=== PATIENT | female | born 1980 | race Caucasian/White ===

== ENCOUNTER 2017-11-02 13:46 | Inpatient (IN) | payer OTHER ==
[2017-11-02] VITALS (10 sets, daily range): BP systolic 96–136; BP diastolic 52–71; PULSE 53–76; RESP 16–20; TEMP 97.4–99.3; O2SAT 100
[~2017-11-02] VITALS: Ht 160 cm; Wt 62.0 kg
[2017-11-02 15:36] LABS: AUTOMATED NEUTROPHIL # 2.7 TH/MM3 (1.8-7.7); BASOPHIL % 0.6 % (0.0-2.0); EOSINOPHIL # 0.1 TH/MM3 (0-0.4); EOSINOPHIL % 1.1 % (0.0-4.0); HEMATOCRIT 23.4 % (35.0-46.0); LYMPH % 33.8 % (9.0-44.0); LYMPHOCYTE # 1.6 TH/MM3 (1.0-4.8); MEAN CELL VOLUME 61.6 FL (80.0-100.0); MEAN CORPUSCULAR HEMOGLOBIN 17.8 PG (27.0-34.0); MEAN PLATELET VOLUME 8.6 FL (7.0-11.0); MONO % 8.4 % (0.0-8.0); MONOCYTE # 0.4 TH/MM3 (0-0.9); NEUT % 56.1 % (16.0-70.0); PLATELET COUNT 361 TH/MM3 (150-450); RED BLOOD COUNT 3.79 MIL/MM3 (4.00-5.30); RED CELL DISTRIBUTION WIDTH 19.6 % (11.6-17.2); WHITE BLOOD COUNT 4.8 TH/MM3 (4.0-11.0)
[2017-11-02 15:40] LABS: BACTERIA, URINE MANY /hpf; BILIRUBIN, URINE NEG (NEG); BLOOD, URINE NEG (NEG); GLUCOSE,URINE NEG (NEG); KETONE, URINE TRACE mg/dL (NEG); MUCUS URINE MANY /lpf (OCC); NITRITE,URINE POS (NEG); SQUAMOUS EPITHELIAL CELL URINE 9 /hpf (0-5); URINE COLOR YELLOW (YELLW/STRAW); URINE LEUKOCYTE ESTERASE SMALL (NEG)
[2017-11-02 15:42] LABS: MEAN CORPUSCULAR HGB CONC 28.9 % (32.0-36.0)
[2017-11-02 15:44] LABS: HEMOGLOBIN 6.8 GM/DL (11.6-15.3)
[2017-11-02 15:45] LABS: PROTHROMBIN TIME - PATIENT 10.3 SEC (9.8-11.6)
[2017-11-02 16:14] LABS: ALBUMIN 3.8 GM/DL (3.4-5.0); ALT (GPT) 12 U/L (10-53); AST (GOT) 12 U/L (15-37); BICARBONATE 24.3 MEQ/L (21.0-32.0); BLOOD UREA NITROGEN 8 MG/DL (7-18); CALCIUM 8.5 MG/DL (8.5-10.1); CHLORIDE 108 MEQ/L (98-107); CREATININE 0.71 MG/DL (0.50-1.00); GLOMERULAR FILTRATION RATE 92 ML/MIN (>89); GLUCOSE,RANDOM 76 MG/DL (74-106); SODIUM (NA) 140 MEQ/L (136-145)
[2017-11-02 16:15] LABS: ALKALINE PHOSPHATASE 52 U/L (45-117); TOTAL BILIRUBIN ADULT 0.3 MG/DL (0.2-1.0); TOTAL PROTEIN 7.5 GM/DL (6.4-8.2)
--- NOTE | 2017-11-02 16:26 | PD ---
HPI Chief Complaint: Abnormal Results Time Seen by Provider: 16:13 Travel History International Travel<30 days: No Contact w/Intl Traveler<30days: No Traveled to known affect area: No History of Present Illness HPI 37-year-old female patient presents to the ER today sent in by her primary care physician because she has been feeling generally fatigued, having some dyspnea on exertion, for several weeks, and had blood work drawn today by primary care doctor which shows significant anemia. She denies any bleeding anywhere, denies heavy menses, and does not know why she is anemic. Modifying Factors: None Associated Signs & Symptoms: Low blood counts, dyspnea on exertion, fatigue Risk Factors: None PFSH Past Medical History ?: Not LMP: 09/2017 Social History Tobacco Use: No Allergies-Medications (Allergen,Severity, Reaction): Coded Allergies: No Known Allergies (Unverified , 11/02/17) Reported Meds & Prescriptions Reported Meds & Active Scripts Active No Active Prescriptions or Reported Medications Review of Systems Except as stated in HPI: all other systems reviewed are Neg Physical Exam Narrative GENERAL: Well-developed middle-age -[place] female patient currently in mild distress. Awake and oriented 3. SKIN: Focused skin assessment warm/dry. HEAD: Atraumatic. Normocephalic. EYES: Pupils equal and round. No scleral icterus. No injection or drainage. ENT: No nasal bleeding or discharge. Mucous membranes pink and moist. NECK: Trachea midline. No JVD. CARDIOVASCULAR: Regular rate and rhythm. No murmur appreciated. RESPIRATORY: No accessory muscle use. Clear to auscultation. Breath sounds equal bilaterally. GASTROINTESTINAL: Abdomen soft, non-tender, nondistended. Hepatic and splenic margins not palpable. MUSCULOSKELETAL: No obvious deformities. No clubbing. No cyanosis. No edema. NEUROLOGICAL: Awake and alert. No obvious cranial nerve deficits. Motor grossly within normal limits. Normal speech. PSYCHIATRIC: Appropriate mood and affect; insight and judgment normal. Data Data Last Documented VS Vital Signs Date Time Temp Pulse Resp B/P (MAP) Pulse Ox O2 Delivery O2 Flow Rate FiO2 11/02/17 16:42 61 20 136/60 (85) 100 11/02/17 16:33 Room Air 11/02/17 14:17 98.0 Orders Orders Urinalysis - C+S If Indicated (11/02/17 14:28) Ed Urine Pregnancytest Poc (11/02/17 14:28) Type And Screen (11/02/17 14:28) Comprehensive Metabolic Panel (11/02/17 14:28) Complete Blood Count With Diff (11/02/17 14:28) Prothrombin Time / Inr (Pt) (11/02/17 14:31) Urine Culture (11/02/17 15:30) Red Blood Cells (Rbc) (11/02/17 16:17) Blood Product Administration (11/02/17 16:17) Sodium Chlor 0.9% 250 Ml Inj (Ns 250 Ml (11/02/17 16:30) Admit Order (Ed Use Only) (11/02/17 16:43) Hgb & Hct (11/02/17 18:01) Hgb & Hct (11/03/17 02:01) Hgb & Hct (11/03/17 10:01) Vital Signs (Adult) Q4H (11/02/17 16:42) Activity Oob Ad Radha (11/02/17 16:42) Diet Heart Healthy (11/02/17 Dinner) Acetaminophen (Tylenol) (11/02/17 16:45) Ondansetron Inj (Zofran Inj) (11/02/17 16:45) Basic Metabolic Panel (Bmp) (11/03/17 06:00) Complete Blood Count With Diff (11/03/17 06:00) Case Management Consult (11/02/17 16:42) Scd Bilateral/Knee High ERIKA.BID (11/02/17 16:42) Place In Observation (11/02/17 16:42) Ferritin (11/02/17 16:42) Transferrin (11/02/17 16:42) Iron/Tibc Profile (11/02/17 16:42) Labs Laboratory Tests Test 11/02/17 14:55 11/02/17 15:30 White Blood Count 4.8 TH/MM3 Red Blood Count 3.79 MIL/MM3 Hemoglobin 6.8 GM/DL Hematocrit 23.4 % Mean Corpuscular Volume 61.6 FL Mean Corpuscular Hemoglobin 17.8 PG Mean Corpuscular Hemoglobin Concent 28.9 % Red Cell Distribution Width 19.6 % Platelet Count 361 TH/MM3 Mean Platelet Volume 8.6 FL Neutrophils (%) (Auto) 56.1 % Lymphocytes (%) (Auto) 33.8 % Monocytes (%) (Auto) 8.4 % Eosinophils (%) (Auto) 1.1 % Basophils (%) (Auto) 0.6 % Neutrophils # (Auto) 2.7 TH/MM3 Lymphocytes # (Auto) 1.6 TH/MM3 Monocytes # (Auto) 0.4 TH/MM3 Eosinophils # (Auto) 0.1 TH/MM3 Basophils # (Auto) 0.0 TH/MM3 CBC Comment DIFF FINAL Differential Comment Prothrombin Time 10.3 SEC Prothromb Time International Ratio 1.0 RATIO Blood Urea Nitrogen 8 MG/DL Creatinine 0.71 MG/DL Random Glucose 76 MG/DL Total Protein 7.5 GM/DL Albumin 3.8 GM/DL Calcium Level 8.5 MG/DL Alkaline Phosphatase 52 U/L Aspartate Amino Transf (AST/SGOT) 12 U/L Alanine Aminotransferase (ALT/SGPT) 12 U/L Total Bilirubin 0.3 MG/DL Sodium Level 140 MEQ/L Potassium Level 3.6 MEQ/L Chloride Level 108 MEQ/L Carbon Dioxide Level 24.3 MEQ/L Anion Gap 8 MEQ/L Estimat Glomerular Filtration Rate 92 ML/MIN Urine Color YELLOW Urine Turbidity HAZY Urine pH 6.0 Urine Specific [place] 1.031 Urine Protein 30 mg/dL Urine Glucose (UA) NEG mg/dL Urine Ketones TRACE mg/dL Urine Occult Blood NEG Urine Nitrite POS Urine Bilirubin NEG Urine Urobilinogen LESS THAN 2.0 MG/DL Urine Leukocyte Esterase SMALL Urine RBC 2 /hpf Urine WBC 1 /hpf Urine Squamous Epithelial Cells 9 /hpf Urine Bacteria MANY /hpf Urine Mucus MANY /lpf Microscopic Urinalysis Comment CULTURE INDICATED MDM Medical Decision Making Medical Screen Exam Complete: Yes Emergency Medical Condition: Yes Medical Record Reviewed: Yes Interpretation(s) Laboratory Tests Test 11/02/17 14:55 11/02/17 15:30 Red Blood Count 3.79 MIL/MM3 (4.00-5.30) Hemoglobin 6.8 GM/DL (11.6-15.3) Hematocrit 23.4 % (35.0-46.0) Mean Corpuscular Volume 61.6 FL (80.0-100.0) Mean Corpuscular Hemoglobin 17.8 PG (27.0-34.0) Mean Corpuscular Hemoglobin Concent 28.9 % (32.0-36.0) Red Cell Distribution Width 19.6 % (11.6-17.2) Monocytes (%) (Auto) 8.4 % (0.0-8.0) Aspartate Amino Transf (AST/SGOT) 12 U/L (15-37) Chloride Level 108 MEQ/L (98-107) Urine Turbidity HAZY (CLEAR) Urine Protein 30 mg/dL (NEG-TRACE) Urine Ketones TRACE mg/dL (NEG) Urine Nitrite POS (NEG) Urine Leukocyte Esterase SMALL (NEG) Urine Bacteria MANY /hpf (NONE) Urine Mucus MANY /lpf (OCC) Differential Diagnosis Symptomatic anemia Narrative Course She was ordered for transfusion. It is unclear what is causing her anemia. Planning to admit as an observation for treatment. Case is discussed with Dr. Arevalo for admission. Diagnosis Primary Impression: Symptomatic anemia Admitting Information Admitting Physician Requests: Admit Scripts No Active Prescriptions or Reported Meds Mitchell Gaspar MD Nov 02, 2017 16:26
[2017-11-02] MEDS ORDERED: SODIUM CHLOR 0.9% 250 ML INJ 250 ML IV ONE (16:30)
[2017-11-02] MEDS ORDERED: ONDANSETRON HCL 4 MG/2 ML VIAL IVP PRN (16:45)
[2017-11-02] MEDS ORDERED: ACETAMINOPHEN 325 MG TAB PO PRN (16:45)
--- NOTE | 2017-11-02 18:49 | HHI.HP ---
[facility] Physician ANT Monzon Admission Diagnosis Symptomatic anemia Diagnoses: Chief Complaint: Referred from primary care due to low hemoglobin 6.2 Travel History International Travel<30 Days: No Contact w/Intl Traveler <30 Da: No Traveled to Known Affected Are: No History of Present Illness 37 years old female with no significant past medical history referred by her primary care physician to the hospital after she was found to have hemoglobin of 6.2, patient reported significant feeling of fatigue dyspnea on exertion for several weeks as well as dizziness, she reported heavy menses occasionally, she denies any family history of colon cancer except for her on Tis had polyps but it was not known if it is cancerous. She is non-smoker no history of other hemoglobinopathy such as sickle cell disease. Patient had a hip history of tubal ligation otherwise she denied any other associated symptoms no chest pain no diarrhea or constipation no dysuria or hematuria Review of Systems All systems reviewed and was positive for what is mentioned in history of present illness otherwise negative Past Family Social History Past Medical History Patient denied any significant past medical history Past Surgical History Tubal ligation Allergies: Coded Allergies: No Known Allergies (Unverified , 11/02/17) Family History Her on she has had colon polyps but not sure if it is cancerous Social History Denied tobacco alcohol or illicit drug abuse Physical Exam Vital Signs Vital Signs Date Time Temp Pulse Resp B/P (MAP) Pulse Ox O2 Delivery O2 Flow Rate FiO2 11/02/17 18:42 98.1 75 16 106/65 100 11/02/17 18:25 98.2 63 17 113/65 100 11/02/17 17:49 98.2 68 20 112/68 (83) 100 11/02/17 17:15 11/02/17 16:42 61 20 136/60 (85) 100 11/02/17 16:33 Room Air 11/02/17 14:17 98.0 75 16 118/71 (87) 100 Physical Exam GENERAL: This is a well-nourished, well-developed patient, in no apparent distress. SKIN: No rashes, warm and dry HEAD: Atraumatic. Normocephalic. EYES: Pupils equal round and reactive. Extraocular motions intact. No scleral icterus. ENT: Nose without bleeding, or drainage, Airway patent. NECK: Trachea midline. Supple CARDIOVASCULAR: Regular rate and rhythm without murmurs, gallops, or rubs. RESPIRATORY: Fair air entry bilaterally. No wheezes, rales, or rhonchi. GASTROINTESTINAL: Abdomen soft, non-tender, nondistended. Positive bowel sounds MUSCULOSKELETAL: Extremities without clubbing, cyanosis, or edema. Pedal pulses appreciated NEUROLOGICAL: Awake and alert. Moves all extremity. Normal speech.no focal neurological deficit Laboratory Laboratory Tests Test 11/02/17 14:55 11/02/17 15:30 White Blood Count 4.8 Red Blood Count 3.79 Hemoglobin 6.8 Hematocrit 23.4 Mean Corpuscular Volume 61.6 Mean Corpuscular Hemoglobin 17.8 Mean Corpuscular Hemoglobin Concent 28.9 Red Cell Distribution Width 19.6 Platelet Count 361 Mean Platelet Volume 8.6 Neutrophils (%) (Auto) 56.1 Lymphocytes (%) (Auto) 33.8 Monocytes (%) (Auto) 8.4 Eosinophils (%) (Auto) 1.1 Basophils (%) (Auto) 0.6 Neutrophils # (Auto) 2.7 Lymphocytes # (Auto) 1.6 Monocytes # (Auto) 0.4 Eosinophils # (Auto) 0.1 Basophils # (Auto) 0.0 CBC Comment DIFF FINAL Differential Comment Prothrombin Time 10.3 Prothromb Time International Ratio 1.0 Blood Urea Nitrogen 8 Creatinine 0.71 Random Glucose 76 Total Protein 7.5 Albumin 3.8 Calcium Level 8.5 Alkaline Phosphatase 52 Aspartate Amino Transf (AST/SGOT) 12 Alanine Aminotransferase (ALT/SGPT) 12 Total Bilirubin 0.3 Sodium Level 140 Potassium Level 3.6 Chloride Level 108 Carbon Dioxide Level 24.3 Anion Gap 8 Estimat Glomerular Filtration Rate 92 Urine Color YELLOW Urine Turbidity HAZY Urine pH 6.0 Urine Specific [place] 1.031 Urine Protein 30 Urine Glucose (UA) NEG Urine Ketones TRACE Urine Occult Blood NEG Urine Nitrite POS Urine Bilirubin NEG Urine Urobilinogen LESS THAN 2.0 Urine Leukocyte Esterase SMALL Urine RBC 2 Urine WBC 1 Urine Squamous Epithelial Cells 9 Urine Bacteria MANY Urine Mucus MANY Microscopic Urinalysis Comment CULTURE INDICATED Date/Time Source Procedure Growth Status 11/02/17 15:30 Urine Random Urine Urine Culture Pending Received Result Diagram: 11/02/17 1455 11/02/17 1455 Caprini VTE Risk Assessment Caprini VTE Risk Assessment: No/Low Risk (score <= 1) Caprini Risk Assessment Model Point Value = 1 Point Value = 2 Point Value = 3 Point Value = 5 Age 41-60 Minor surgery BMI > 25 kg/m2 Swollen legs Varicose veins or History of unexplained or recurrent spontaneous Oral contraceptives or hormone replacement Sepsis (< 1 month) Serious lung disease, including pneumonia (< 1 month) Abnormal pulmonary function Acute myocardial infarction Congestive heart failure (< 1 month) History of inflammatory bowel disease Medical patient at bed rest Age 61-74 Arthroscopic surgery Major open surgery (> 45 min) Laparoscopic surgery (> 45 min) Malignancy Confined to bed (> 72 hours) Immobilizing plaster cast Central venous access Age >= 75 History of VTE Family history of VTE Factor V Leiden Prothrombin [id number] Lupus anticoagulant Anticardiolipin antibodies Elevated serum homocysteine Heparin-induced thrombocytopenia Other congenital or acquired thrombophilia Stroke (< 1 month) Elective arthroplasty Hip, pelvis, or leg fracture Acute spinal cord injury (< 1 month) Prophylaxis Regimen Total Risk Factor Score Risk Level Prophylaxis Regimen 0-1 Low Early ambulation 2 Moderate Order ONE of the following: *Sequential Compression Device (SCD) *Heparin 5000 units SQ BID 3-4 Higher Order ONE of the following medications: *Heparin 5000 units SQ TID *Enoxaparin/Lovenox 40 mg SQ daily (WT < 150 kg, CrCl > 30 mL/min) *Enoxaparin/Lovenox 30 mg SQ daily (WT < 150 kg, CrCl > 10-29 mL/min) *Enoxaparin/Lovenox 30 mg SQ BID (WT < 150 kg, CrCl > 30 mL/min) AND/OR *Sequential Compression Device (SCD) 5 or more Highest Order ONE of the following medications: *Heparin 5000 units SQ TID (Preferred with Epidurals) *Enoxaparin/Lovenox 40 mg SQ daily (WT < 150 kg, CrCl > 30 mL/min) *Enoxaparin/Lovenox 30 mg SQ daily (WT < 150 kg, CrCl > 10-29 mL/min) *Enoxaparin/Lovenox 30 mg SQ BID (WT < 150 kg, CrCl > 30 mL/min) AND *Sequential Compression Device (SCD) Assessment and Plan Assessment and Plan 37 years old female with no significant past medical history presented to the ED referred from her primary care office due to abnormal hemoglobin level 6.2 Acute versus chronic anemia and specified Will check iron panel, monitor H&H, Type cross and match 2 units of blood and transfuse Will check HDL and haptoglobin to rule out hemolysis if positive consider further workup Check FOBT Consider GI for colonoscopy Consider hematology DVT prophylaxis with SCD no chemical due to Discussed Condition With Patient in ED physician Arsenio Villanueva MD Nov 02, 2017 18:49
[2017-11-02 22:32] LABS: IRON (FE) 11 MCG/DL (50-170)
[2017-11-02 22:57] LABS: % SATURATION IRON PROFILE 2.3 % (20-50); FERRITIN 2 NG/ML (8-252); FOLATE 9.1 NG/ML (3.1-17.5); TOTAL IRON BINDING CAPACITY 477 MCG/DL (250-450)
[2017-11-02] MEDS ORDERED: ONDANSETRON ODT 4 MG TAB SL PRN (23:00)
[2017-11-03 02:36] LABS: HEMATOCRIT 30.3 % (35.0-46.0); HEMOGLOBIN 9.4 GM/DL (11.6-15.3)
[2017-11-03 03:46] VITALS: BP 112/63; PULSE 63; RESP 20; TEMP 96.5; O2SAT 100
[2017-11-03 08:02] VITALS: BP 114/72; PULSE 81; RESP 20; TEMP 98.2; O2SAT 97
[2017-11-03 11:19] VITALS: BP 94/57; PULSE 58; RESP 12; TEMP 98; O2SAT 100
--- NOTE | 2017-11-03 11:42 | HHI.PR ---
Subjective Remarks Follow up anemia. Patient feels "very tired". No dyspnea, chest pain. No bowel movements. No vaginal bleeding. No recent blood in stool. The patient states that she has decreased appetite. She states that she becomes full easily. Objective Vitals Vital Signs Date Time Temp Pulse Resp B/P (MAP) Pulse Ox O2 Delivery O2 Flow Rate FiO2 11/03/17 11:19 98.0 58 12 94/57 (69) 100 11/03/17 08:02 98.2 81 20 114/72 (86) 97 11/03/17 03:46 96.5 63 20 112/63 (79) 100 11/02/17 23:58 98.3 53 20 96/52 (67) 100 11/02/17 22:36 97.4 54 20 103/63 100 11/02/17 22:15 98.2 76 20 101/64 100 11/02/17 20:00 99.3 59 20 108/60 (76) 100 11/02/17 19:05 98.3 72 16 116/63 100 11/02/17 18:42 98.1 75 16 106/65 100 11/02/17 18:25 98.2 63 17 113/65 100 11/02/17 17:49 98.2 68 20 112/68 (83) 100 11/02/17 17:15 11/02/17 16:42 61 20 136/60 (85) 100 11/02/17 16:33 Room Air 11/02/17 14:17 98.0 75 16 118/71 (87) 100 I/O 11/02/17 11/02/17 11/02/17 11/03/17 11/03/17 11/03/17 07:00 15:00 23:00 07:00 15:00 23:00 Intake Total 920 ml 1135 ml Balance 920 ml 1135 ml Intake Oral 480 ml 720 ml Packed Cells 400 ml 400 ml Blood Product IV Normal Saline Flush 40 ml 15 ml # Voids 3 # Bowel Movements 0 Result Diagram: 11/03/17 0229 11/02/17 1455 Objective Remarks Patient examined in the presence of the nurse. General: No acute distress. Heart: Regular rate and rhythm. No murmur. Lungs: Clear to auscultation bilaterally. No wheezes, rales, or rhonchi. Breathing is nonlabored. Abdomen: Soft, nontender, nondistended. Extremities: No lower extremity edema. Psych: Alert and oriented. Neuro: Normal speech. No focal deficits noted. Procedures None Urinary Catheter: No Vascular Central Line Catheter: No A/P Assessment and Plan 1. Anemia: Uncertain etiology. Workup consistent with iron deficiency. Hemoglobin improved following transfusion of 2 units PRBCs. Stool Hemoccult pending. Patient has not had a bowel movement in the last 2 days. Patient denies history of sickle cell disease or any other blood problems. States that in the past she has had anemia, but never with a hemoglobin this low. Consult hematology. 2. Increased appetite, early satiety: Consult gastroenterology. 3. DVT prophylaxis: SCDs. Avoid chemical prophylaxis secondary to anemia. Discharge Planning Pending further workup. Celso Quach MD Nov 03, 2017 11:42
[2017-11-03 12:00] LABS: AUTOMATED NEUTROPHIL # 4.6 TH/MM3 (1.8-7.7); BASOPHIL % 0.7 % (0.0-2.0); EOSINOPHIL # 0.1 TH/MM3 (0-0.4); EOSINOPHIL % 1.1 % (0.0-4.0); HEMATOCRIT 32.3 % (35.0-46.0); HEMOGLOBIN 9.8 GM/DL (11.6-15.3); LYMPH % 21.1 % (9.0-44.0); LYMPHOCYTE # 1.4 TH/MM3 (1.0-4.8); MEAN CELL VOLUME 66.9 FL (80.0-100.0); MEAN CORPUSCULAR HEMOGLOBIN 20.4 PG (27.0-34.0); MEAN CORPUSCULAR HGB CONC 30.4 % (32.0-36.0); MEAN PLATELET VOLUME 8.8 FL (7.0-11.0); MONO % 5.9 % (0.0-8.0); MONOCYTE # 0.4 TH/MM3 (0-0.9); NEUT % 71.2 % (16.0-70.0); PLATELET COUNT 348 TH/MM3 (150-450); RED BLOOD COUNT 4.83 MIL/MM3 (4.00-5.30); RED CELL DISTRIBUTION WIDTH 26.4 % (11.6-17.2); WHITE BLOOD COUNT 6.5 TH/MM3 (4.0-11.0)
[2017-11-03 12:12] LABS: CALCIUM 8.8 MG/DL (8.5-10.1); CREATININE 0.73 MG/DL (0.50-1.00)
[2017-11-03 13:15] LABS: OVALOCYTES 1+ (NORMAL)
--- NOTE | 2017-11-03 14:07 | PD.CONS ---
HPI History of Present Illness This is a 37 year old F with PMH significant for anemia, states has been told in the past and was advised to begin iron supplements however has not done so. Pt presented to the ER yesterday with complaints of fatigue and dizziness, her hgb was found to be 6.8 and she was admitted for further work up. Pt denies need for blood transfusions in the past. Thinks she may have family history of anemia, but denies known history of sickle cell anemia. Pt denies acid reflux and heartburn at home, did have an isolated episode last night while in the hospital. Also reports some nausea yesterday but denies any issues with nausea and vomiting at home. Does reports intermittent lower abdominal pain, described as a cramping sensation, states it feels like she is about to have a menstrual cycle but she does not. Pain normally lasts a couple hours, she takes Tylenol which sometimes relieves her pain. Reports BMs are regular although sometimes the stool is hard. Denies any obvious blood in stool and black stools. Also reports a 10 pound weight loss, unintentional, over the past month. Has also been having symptoms of early satiety and abdominal bloating after meals thinks possibly for the past year. Has had an EGD in the past, which revealed H. Pylori which she was treated for in 2002. Denies previous colonoscopy. Of note , reports irregular menstrual cycles, sometimes with very heavy bleeding and sometimes light bleeding. Denies blood thinners. Takes Aleve during her menstrual cycles to help with pain. ETOH once a month. Denies smoking and illicit drug use. (Kelsi Altman) PFSH Past Medical History H. Pylori Past Surgical History Tubal ligation EGD (Kelsi Altman) Coded Allergies: No Known Allergies (Unverified , 11/02/17) Family History Her aunt had colon polyps but not sure if it is cancerous mother had ovarian cancer Social History Denied tobacco and illicit drug use Occasional ETOH, once a month (Kelsi Altman) Review of Systems Gastrointestinal: COMPLAINS OF: Abdominal pain, Nausea, Anorexia, Swelling of Abdomen, Heartburn, DENIES: Black stools, Bloody stools, Constipation, Diarrhea , Vomiting, Difficulty Swallowing, Odynophagia, Hematemesis (Kelsi Altman) GI Exam Vitals I&O Vital Signs Date Time Temp Pulse Resp B/P (MAP) Pulse Ox O2 Delivery O2 Flow Rate FiO2 11/03/17 11:19 98.0 58 12 94/57 (69) 100 11/03/17 08:02 98.2 81 20 114/72 (86) 97 11/03/17 03:46 96.5 63 20 112/63 (79) 100 11/02/17 23:58 98.3 53 20 96/52 (67) 100 11/02/17 22:36 97.4 54 20 103/63 100 11/02/17 22:15 98.2 76 20 101/64 100 11/02/17 20:00 99.3 59 20 108/60 (76) 100 11/02/17 19:05 98.3 72 16 116/63 100 11/02/17 18:42 98.1 75 16 106/65 100 11/02/17 18:25 98.2 63 17 113/65 100 11/02/17 17:49 98.2 68 20 112/68 (83) 100 11/02/17 17:15 11/02/17 16:42 61 20 136/60 (85) 100 11/02/17 16:33 Room Air 11/02/17 14:17 98.0 75 16 118/71 (87) 100 I/O 11/02/17 11/02/17 11/02/17 11/03/17 11/03/17 11/03/17 07:00 15:00 23:00 07:00 15:00 23:00 Intake Total 920 ml 1135 ml Balance 920 ml 1135 ml Intake Oral 480 ml 720 ml Packed Cells 400 ml 400 ml Blood Product IV Normal Saline Flush 40 ml 15 ml # Voids 3 # Bowel Movements 0 Laboratory Test 11/02/17 14:55 11/02/17 15:30 11/03/17 02:29 11/03/17 11:26 White Blood Count 4.8 TH/MM3 6.5 TH/MM3 Red Blood Count 3.79 MIL/MM3 4.83 MIL/MM3 Hemoglobin 6.8 GM/DL 9.4 GM/DL 9.8 GM/DL Hematocrit 23.4 % 30.3 % 32.3 % Mean Corpuscular Volume 61.6 FL 66.9 FL Mean Corpuscular Hemoglobin 17.8 PG 20.4 PG Mean Corpuscular Hemoglobin Concent 28.9 % 30.4 % Red Cell Distribution Width 19.6 % 26.4 % Platelet Count 361 TH/MM3 348 TH/MM3 Mean Platelet Volume 8.6 FL 8.8 FL Neutrophils (%) (Auto) 56.1 % 71.2 % Lymphocytes (%) (Auto) 33.8 % 21.1 % Monocytes (%) (Auto) 8.4 % 5.9 % Eosinophils (%) (Auto) 1.1 % 1.1 % Basophils (%) (Auto) 0.6 % 0.7 % Neutrophils # (Auto) 2.7 TH/MM3 4.6 TH/MM3 Lymphocytes # (Auto) 1.6 TH/MM3 1.4 TH/MM3 Monocytes # (Auto) 0.4 TH/MM3 0.4 TH/MM3 Eosinophils # (Auto) 0.1 TH/MM3 0.1 TH/MM3 Basophils # (Auto) 0.0 TH/MM3 0.0 TH/MM3 CBC Comment DIFF FINAL AUTO DIFF Differential Comment AUTO DIFF CONFIRMED Haptoglobin 180 MG/DL Prothrombin Time 10.3 SEC Prothromb Time International Ratio 1.0 RATIO Blood Urea Nitrogen 8 MG/DL 9 MG/DL Creatinine 0.71 MG/DL 0.73 MG/DL Random Glucose 76 MG/DL 115 MG/DL Total Protein 7.5 GM/DL Albumin 3.8 GM/DL Calcium Level 8.5 MG/DL 8.8 MG/DL Alkaline Phosphatase 52 U/L Aspartate Amino Transf (AST/SGOT) 12 U/L Alanine Aminotransferase (ALT/SGPT) 12 U/L Total Bilirubin 0.3 MG/DL Sodium Level 140 MEQ/L 144 MEQ/L Potassium Level 3.6 MEQ/L 3.4 MEQ/L Chloride Level 108 MEQ/L 112 MEQ/L Carbon Dioxide Level 24.3 MEQ/L 23.0 MEQ/L Anion Gap 8 MEQ/L 9 MEQ/L Estimat Glomerular Filtration Rate 92 ML/MIN 89 ML/MIN Iron Level 11 MCG/DL Total Iron Binding Capacity 477 MCG/DL Percent Iron Saturation 2.3 % Transferrin 341 MG/DL Ferritin 2 NG/ML Lactate Dehydrogenase 168 U/L Vitamin B12 Level 351 PG/ML Folate 9.1 NG/ML Urine Color YELLOW Urine Turbidity HAZY Urine pH 6.0 Urine Specific [place] 1.031 Urine Protein 30 mg/dL Urine Glucose (UA) NEG mg/dL Urine Ketones TRACE mg/dL Urine Occult Blood NEG Urine Nitrite POS Urine Bilirubin NEG Urine Urobilinogen LESS THAN 2.0 MG/DL Urine Leukocyte Esterase SMALL Urine RBC 2 /hpf Urine WBC 1 /hpf Urine Squamous Epithelial Cells 9 /hpf Urine Bacteria MANY /hpf Urine Mucus MANY /lpf Microscopic Urinalysis Comment CULTURE INDICATED Ovalocytes 1+ Date/Time Source Procedure Growth Status 11/02/17 15:30 Urine Random Urine Urine Culture Pending Received Physical Examination HEENT: Normocephalic; atraumatic CHEST: Even/unlabored CARDIAC: RRR ABDOMEN: Soft, nondistended, nontender; bowel sounds active EXTREMITIES: No clubbing, cyanosis, or edema. SKIN: Normal; no rash; no jaundice. WATERMASTER: Alert and oriented times three. (Kelsi Altman) Assessment and Plan Plan Assessment: - Anemia, microcytic, hypochromic H/H 6.8/23.4 on admission States known history of anemia- has been as low as a hgb of 7 or 8. Was advised to take iron supplements but has not done so. Denies previous blood transfusion. Thinks may have family history of anemia, but denies sickle cell anemia. Last EGD in 2002 revealed H. Pylori. Has never had colonoscopy Complaining of: early satiety and abdominal bloating after meals for the past year, unintentional weight loss of 10 lbs over the past month, one episode of acid reflux and nausea yesterday but denies this previously. Lower abdominal pain, intermittent, few times a week, last a couple hours, takes Tylenol which sometimes provides relief. Denies: Constipation, diarrhea, vomiting, blood in stool ETOH- occasional. Denies smoking and illicit drug use Takes Aleve as needed but normally only during her menstrual cycle. Family history of uterine cancer, mother Of note, pt does reports occasional heavy menstrual cycles, although states last month was light Plan: EGD and colonoscopy tomorrow Obtain consent Clear liquids today Golytely prep NPO after [facility] Hematology consult CT abdomen and pelvis W IV contrast Further recommendations based on findings of above Pt has been seen and examined by myself and Dr. Alas and this note is written on his behalf (Kelsi Altman) Physician Comments Seen and examined, plan as above. Will schedule EGD and Colonoscopy. Further recommendations to follow. Thank you. (Francine Alas MD) Kelsi Altman Nov 03, 2017 14:07 Francine Alas MD Nov 04, 2017 09:38
[2017-11-03] MEDS ORDERED: DIATRIZOATE MEGLUM/DIATRIZOATE SOD 9 ML CUP PO ONE (15:00)
[2017-11-03 15:11] VITALS: BP 113/59; PULSE 66; RESP 20; TEMP 98.5; O2SAT 97
[2017-11-03 15:53] LABS: HEMATOCRIT 31.2 % (35.0-46.0); HEMOGLOBIN 9.9 GM/DL (11.6-15.3)
[2017-11-03] MEDS ORDERED: PEG (High)/E-LYTE SOLN 4000 ML BTL PO ONE (16:00)
--- NOTE | 2017-11-03 17:41 | PD.CONS ---
History of Present Illness Service Hematology/oncology. Consult Requested By The hospitalist service. Reason for Consult Severe microcytic anemia associated with iron deficiency. Primary Care Physician ANT Monzon Diagnoses: History of Present Illness Chief Complaint: 1. Generalized fatigue, weakness and difficulty breathing with exertion; progressive over the past 4 weeks. 2. Two-month history of decreased appetite and early satiety. 3. 10-12 pounds unintended weight loss over the past 1 month. History of Presenting Illness: Ms. Buchanan is a 37-year-old female who reports being in her usual state of health up until about 2 months ago, about 6 weeks ago she noted symptoms of early satiety, loss of appetite and abdominal bloating. The patient reports her appetite has been depleted to the point where she can barely eat a quarter of what her average mealtime intake was just a few weeks ago. Additionally, she reports having had a chronic history of heavy menstrual bleeding; she reports having heavy periods which last 7 days and cycle every 4 weeks. She reports needing to change an extra heavy pad every 2-3 hours during the cycle, if she does not change the pads she soaks through. She reported the symptoms to her PCP; Dr. Lise Salas who advised blood work, patient had blood work done on 11/01/2017. The results were reported to Dr. Salas and the patient was advised to come into the emergency department after she was found to have a hemoglobin of less than 6.5 g/dL. The patient followed through and came into [facility] yesterday, repeat blood work revealed a hemoglobin of 6.8 g/dL, associated with a hematocrit of 23.4% and an MCV of 61.6, serum iron studies indicated findings consistent with iron deficiency anemia; iron saturation was 2.3%, ferritin level of 2 iron level of 11. She had no evidence of folic acid or vitamin B12 deficiency. LDH and haptoglobin were within normal limits ruling out hemolysis. She was treated with packed red blood cell transfusion with improvement in her hemoglobin and hematocrit. She is currently being evaluated by gastroenterology and has been advised CT scan of the abdomen pelvis to evaluate further her symptoms of early satiety and abdominal bloating, she is also currently being prepped for upper and lower GI endoscopic evaluation on 11/04/2017. Review of Systems Constitutional: COMPLAINS OF: Diaphoretic episodes, Fatigue, Weight loss, Chills, Dizziness, Change in appetite (Decreased appetite), DENIES: Fever, Weight gain, Night Sweats Endocrine: COMPLAINS OF: Abnorml menstrual pattern (Heavy menstrual bleeding), Heat/cold intolerance, DENIES: Polydipsia, Polyuria, Polyphagia Eyes: DENIES: Blurred vision, Diplopia, Eye inflammation, Eye pain, Vision loss , Photosensitivity, Double Vision Ears, nose, mouth, throat: DENIES: Tinnitus, Hearing loss, Vertigo, Nasal discharge, Oral lesions, Throat pain, Hoarseness, Ear Pain, Running Nose, Epistaxis, Sinus Pain, Toothache Respiratory: COMPLAINS OF: Shortness of breath, DENIES: Apneas, Cough, Snoring , Wheezing, Hemoptysis, Sputum production Cardiovascular: COMPLAINS OF: Palpitations, Dyspnea on Exertion, DENIES: Chest pain, Syncope, PND, Lower Extremity Edema, Orthopnea, Claudication Gastrointestinal: COMPLAINS OF: Abdominal pain, Nausea, Vomiting, Anorexia, DENIES: Black stools, Bloody stools, Constipation, Diarrhea, Difficulty Swallowing Genitourinary: COMPLAINS OF: Abnormal vaginal bleeding, DENIES: Dysmenorrhea, Dyspareunia, Sexual dysfunction, Urinary frequency, Urinary incontinence, Urgency, Hematuria, Dysuria, Nocturia, Vaginal discharge Musculoskeletal: DENIES: Joint pain, Muscle aches, Stiffness, Joint Swelling, Back pain, Neck pain Integumentary: DENIES: Abnormal pigmentation, Pruritus, Rash, Nail changes, Breast masses, Breast skin changes, Nipple discharge Hematologic/lymphatic: DENIES: Bruising, Lymphadenopathy Immunologic/allergic: DENIES: Eczema, Urticaria Neurologic: DENIES: Abnormal gait, Headache, Localized weakness, Paresthesias, Seizures, Speech Problems, Tremor, Poor Balance Psychiatric: DENIES: Anxiety, Confusion, Mood changes, Depression, Hallucinations, Agitation, Suicidal Ideation, Homicidal Ideation, Delusions Except as stated in HPI: all other systems reviewed are Neg Past Family Social History Allergies: Coded Allergies: No Known Allergies (Unverified , 11/02/17) Past Medical History Reported history of anemia Past Surgical History Tubal ligation Active Ordered Medications Tylenol 650 mg p.o. every 4 hours needed for fever Zofran 4 mg sublingual every 6 hours as needed for nausea Family History Mother diagnosed with ovarian cancer at the age of 48; she at the age of 50 of ovarian cancer. Father: , he of complications following surgery. No other oncologic diagnoses noted in the family. Social History Patient lives at home with her daughter and son-in-law, she currently works at a fast food restaurant. She reports being a lifelong non-smoker she also reports no history of illicit drug use or alcohol abuse. Physical Exam Vital Signs Vital Signs Date Time Temp Pulse Resp B/P (MAP) Pulse Ox O2 Delivery O2 Flow Rate FiO2 11/03/17 15:11 98.5 66 20 113/59 (77) 97 11/03/17 11:19 98.0 58 12 94/57 (69) 100 11/03/17 08:02 98.2 81 20 114/72 (86) 97 11/03/17 03:46 96.5 63 20 112/63 (79) 100 11/02/17 23:58 98.3 53 20 96/52 (67) 100 11/02/17 22:36 97.4 54 20 103/63 100 11/02/17 22:15 98.2 76 20 101/64 100 11/02/17 20:00 99.3 59 20 108/60 (76) 100 11/02/17 19:05 98.3 72 16 116/63 100 11/02/17 18:42 98.1 75 16 106/65 100 11/02/17 18:25 98.2 63 17 113/65 100 11/02/17 17:49 98.2 68 20 112/68 (83) 100 Physical Exam GENERAL: Young female, sitting up in bed, appears to be no acute distress is a pleasant disposition. SKIN: No rashes, ecchymoses or lesions. Cool and dry. HEAD: Atraumatic. Normocephalic. No temporal or scalp tenderness. EYES: Pupils equal round and reactive. Extraocular motions intact. No scleral icterus. No injection or drainage. Conjunctivae are pale. Sclerae anicteric. ENT: Nose without bleeding, purulent drainage or septal hematoma. Throat without erythema, tonsillar hypertrophy or exudate. Uvula midline. Airway patent. NECK: Trachea midline. No JVD or lymphadenopathy. Supple, nontender, no meningeal signs. CARDIOVASCULAR: Regular rate and rhythm without murmurs, gallops, or rubs. RESPIRATORY: Clear to auscultation. Breath sounds equal bilaterally. No wheezes , rales, or rhonchi. GASTROINTESTINAL: Abdomen soft, non-tender, nondistended. No hepato-splenomegaly , or palpable masses. No guarding. MUSCULOSKELETAL: Extremities without clubbing, cyanosis, or edema. No joint tenderness, effusion, or edema noted. No calf tenderness. Negative Homans sign bilaterally. NEUROLOGICAL: Awake and alert. Cranial nerves II through XII intact. Motor and sensory grossly within normal limits. Five out of 5 muscle strength in all muscle groups. Normal speech. Laboratory Laboratory Tests Test 11/03/17 02:29 11/03/17 11:26 11/03/17 15:28 Hemoglobin 9.4 9.8 9.9 Hematocrit 30.3 32.3 31.2 White Blood Count 6.5 Red Blood Count 4.83 Mean Corpuscular Volume 66.9 Mean Corpuscular Hemoglobin 20.4 Mean Corpuscular Hemoglobin Concent 30.4 Red Cell Distribution Width 26.4 Platelet Count 348 Mean Platelet Volume 8.8 Neutrophils (%) (Auto) 71.2 Lymphocytes (%) (Auto) 21.1 Monocytes (%) (Auto) 5.9 Eosinophils (%) (Auto) 1.1 Basophils (%) (Auto) 0.7 Neutrophils # (Auto) 4.6 Lymphocytes # (Auto) 1.4 Monocytes # (Auto) 0.4 Eosinophils # (Auto) 0.1 Basophils # (Auto) 0.0 CBC Comment AUTO DIFF Differential Comment AUTO DIFF CONFIRMED Ovalocytes 1+ Blood Urea Nitrogen 9 Creatinine 0.73 Random Glucose 115 Calcium Level 8.8 Sodium Level 144 Potassium Level 3.4 Chloride Level 112 Carbon Dioxide Level 23.0 Anion Gap 9 Estimat Glomerular Filtration Rate 89 Date/Time Source Procedure Growth Status 11/02/17 15:30 Urine Random Urine Urine Culture - Preliminary Gram Negative Nahid Resulted Result Diagram: 11/03/17 1528 11/03/[address] scan of the abdomen pelvis is pending at this time. Assessment and Plan Assessment and Plan Ms. Buchanan is a very pleasant 37-year-old female we denies any significant medical comorbid conditions other than having anemia in the past for which she was on and off oral iron replacement therapy. She presents to the hospital with a 2 month history of progressive weakness, fatigue, early satiety, unintended weight loss and abdominal bloating. Initial blood work indicated severe anemia associate with microcytosis, serum iron studies indicate severe iron deficiency. She is currently undergoing a workup for her GI symptoms as well as iron deficiency anemia. Plan: 1. Severe microcytic anemia: Serum iron studies indicate findings consistent with severe iron deficiency. All the red blood cell indices are consistent with iron deficiency. I will initiate her on IV iron replacement therapy with iron sucrose. I would advise she be discharged home on oral iron replacement therapy with ferrous sulfate 325 mg 3 times a day. Given her history of heavy menstrual bleeding I suspect menstrual losses are the likely cause of her iron deficiency anemia. However given her upper GI symptoms a GI source of bleeding needs to be ruled out. 2. Symptoms of early satiety, abdominal bloating and unintended weight loss: The symptoms are very concerning, agree with EGD and colonoscopy as well as CT imaging of the abdomen pelvis. Discussed Condition With Patient. Richard Palomo MD Nov 03, 2017 17:41
[2017-11-03] MEDS ORDERED: IOHEXOL 350 MG/ML 10 ML VIAL (for RAD DIAG) IVCONTRAST ONE (17:58)
--- NOTE | 2017-11-03 18:11 | RADRPT ---
EXAM DATE: 11/03/2017 6:00 PM EDT AGE/SEX: 37 years / Female INDICATIONS: Weight loss. CLINICAL DATA: This is the patient's initial encounter. Patient reports that signs and symptoms have been present for 1 month and indicates a pain score of 0/10. MEDICAL/SURGICAL HISTORY: Anemia. Tubal ligation. ORAL CONTRAST: Partial prescribed oral contrast ingested. RADIATION DOSE: 4.81 CTDI (mGy) COMPARISON: No prior exams available for comparison. TECHNIQUE: Multiple contiguous axial images were obtained through the abdomen and pelvis following b olus infusion of 80 ml Omnipaque 350 (iohexol) nonionic water-soluble contrast as a single exam dos e. Partial prescribed oral contrast ingested. Using automated exposure control and adjustment of the mA and/or kV according to patient size, the radiation dose was kept as low as reasonably achievable to obtain optimal diagnostic quality images. FINDINGS: Lower chest: No acute abnormality is identified. Hepatobiliary: No focal liver lesion is identified. Hepatic vasculature demonstrates no abnormality. No calcified gallstones are present. Kidneys: No hydronephrosis, stone, or mass. In the right lower pole kidney there is a 9 mm low-densit y lesion that is too small to characterize. Also in the left lower pole kidney and left mid kidney th ere is a incidental 7 mm and 3 mm low-density lesion. Both of these are too small to characterize. A 16 mm low-density lesion at the upper pole left kidney has density measurements characteristic of a s imple cyst. Adrenal Glands: Within normal limits. Spleen: Within normal limits. Pancreas: Within normal limits. Vascular: The aorta is nonaneurysmal. There is calcification in the region of the left gonadal vessel s. Bowel/Mesentery: Stomach and small bowel demonstrate no abnormality. Appendix and terminal ileum have a normal appearance. There is trace free fluid in the pelvis. No free air is identified. Abdominal Wall: No hernia is visualized. Retroperitoneum: No lymphadenopathy. Bladder: No wall thickening or mass. Reproductive: Within normal limits. Inguinal: No lymphadenopathy or hernia. Musculoskeletal: No acute osseous abnormality is identified. CONCLUSION: 1. No acute finding is identified to explain the patient's weight loss. 2. There is trace free fluid in the posterior cul-de-sac in the pelvis which may be physiologic. Electronically signed by: Derik Edwards MD 11/03/2017 6:10 PM EDT
[2017-11-03] MEDS ORDERED: IRON SUCROSE INJ 200 MG in SODIUM CHLORIDE 0.9% INJ 100 ML IV ONE (18:30)
[2017-11-03 19:50] VITALS: BP 124/70; PULSE 53; RESP 16; TEMP 98.4; O2SAT 100
[2017-11-03 23:40] VITALS: BP 111/68; PULSE 56; RESP 16; TEMP 98.2; O2SAT 100
[2017-11-04 04:15] VITALS: BP 111/56; PULSE 62; RESP 17; TEMP 98.1; O2SAT 100
[2017-11-04 07:56] VITALS: BP 150/88; PULSE 68; RESP 18; TEMP 98.6; O2SAT 98
[2017-11-04] MEDS ORDERED: PHARMACY INFORMATION XX PRN (10:15)
[2017-11-04] MEDS ORDERED: ASP: Documented ESBL, MDR A baumannii or P. aeruginosa PRN (10:15)
--- NOTE | 2017-11-04 10:28 | HHI.PR ---
Subjective Remarks Follow-up anemia, early satiety. Patient's urine culture growing E. coli ESBL positive. She states that she is having some increased urinary frequency as well as small volume of urine. Reports upset stomach from the bowel prep. Objective Vitals Vital Signs Date Time Temp Pulse Resp B/P (MAP) Pulse Ox O2 Delivery O2 Flow Rate FiO2 11/04/17 07:56 98.6 68 18 150/88 (108) 98 11/04/17 04:15 98.1 62 17 111/56 (74) 100 11/03/17 23:40 98.2 56 16 111/68 (82) 100 11/03/17 19:50 98.4 53 16 124/70 (88) 100 11/03/17 15:11 98.5 66 20 113/59 (77) 97 11/03/17 11:19 98.0 58 12 94/57 (69) 100 I/O 11/03/17 11/03/17 11/03/17 11/04/17 11/04/17 11/04/17 07:00 15:00 23:00 07:00 15:00 23:00 Intake Total 1135 ml 760 ml Balance 1135 ml 760 ml Intake Oral 720 ml 760 ml Packed Cells 400 ml Blood Product IV Normal Saline Flush 15 ml # Voids 3 # Bowel Movements 0 0 Result Diagram: 11/03/17 1528 11/03/17 1126 Imaging Last Impressions Abdomen/Pelvis CT 11/03/17 0000 Signed Impressions: CONCLUSION: 1. No acute finding is identified to explain the patient's weight loss. 2. There is trace free fluid in the posterior cul-de-sac in the pelvis which m ay be physiologic. Objective Remarks General: No acute distress. Heart: Regular rate and rhythm. No murmur. Lungs: Clear to auscultation bilaterally. No wheezes, rales, or rhonchi. Breathing is nonlabored. Abdomen: Soft, nontender, nondistended. Extremities: No lower extremity edema. Psych: Alert and oriented. Neuro: Normal speech. No focal deficits noted. Procedures None Urinary Catheter: No Vascular Central Line Catheter: No A/P Assessment and Plan 1. Anemia: Uncertain etiology, possibly secondary to menstrual bleeding. Workup consistent with iron deficiency. Hemoglobin improved following transfusion of 2 units PRBCs. Stool Hemoccult pending. Patient denies history of sickle cell disease or any other blood problems. States that in the past she has had anemia, but never with a hemoglobin this low. Appreciate hematology recommendations. Received 1 dose of IV iron. 2. Increased appetite, early satiety: Appreciate GI recommendations. No acute change found on CT to explain her symptoms. Scheduled for EGD and colonoscopy. 3. UTI: Urine culture growing ESBL positive E. coli. Start ertapenem. Consult infectious disease. Contact isolation. 4. DVT prophylaxis: SCDs. Avoid chemical prophylaxis secondary to anemia. Discharge Planning Pending further workup. Celso Quach MD Nov 04, 2017 10:28
[2017-11-04 10:40] LABS: BASOPHIL % 0.5 % (0.0-2.0); EOSINOPHIL # 0.1 TH/MM3 (0-0.4); EOSINOPHIL % 1.3 % (0.0-4.0); HEMATOCRIT 32.1 % (35.0-46.0); HEMOGLOBIN 9.8 GM/DL (11.6-15.3); LYMPH % 15.7 % (9.0-44.0); MEAN CELL VOLUME 67.3 FL (80.0-100.0); MEAN CORPUSCULAR HEMOGLOBIN 20.7 PG (27.0-34.0); MEAN CORPUSCULAR HGB CONC 30.7 % (32.0-36.0); MEAN PLATELET VOLUME 8.6 FL (7.0-11.0); MONO % 6.1 % (0.0-8.0); MONOCYTE # 0.4 TH/MM3 (0-0.9); NEUT % 76.4 % (16.0-70.0); PLATELET COUNT 327 TH/MM3 (150-450); RED BLOOD COUNT 4.76 MIL/MM3 (4.00-5.30); RED CELL DISTRIBUTION WIDTH 26.4 % (11.6-17.2); WHITE BLOOD COUNT 6.6 TH/MM3 (4.0-11.0)
[2017-11-04] MEDS ORDERED: ERTAPENEM INJ 1,000 MG in SODIUM CHLORIDE 0.9% INJ 100 ML IV SCH (11:00)
[2017-11-04] MEDS ORDERED: PROPOFOL 200 MG/20 ML AMP IV ONE (12:00)
[2017-11-04] MEDS ORDERED: LIDOCAINE HCL 1% PF 5 ML SYRINGE OTHER ONE (12:00)
[2017-11-04 12:07] LABS: OVALOCYTES 1+ (NORMAL)
--- NOTE | 2017-11-04 12:32 | GIPROC ---
[facility] [address] [facility]. [facility], [address] EGD PROCEDURE REPORT EXAM DATE: 11/04/2017 PATIENT NAME: Ivette Buchanan MR #: [id number] BIRTHDATE: 1980 ATTENDING: Francine Alas MD ORDER #: [id number] BUYER: Sofia George and Malika Harris STATUS: inpatient INDICATIONS: The patient is a 37 yr old female here for an EGD due to anemia PROCEDURE PERFORMED: EGD w/ biopsy MEDICATIONS: None and Per Anesthesia. TOPICAL ANESTHETIC: none CONSENT: The patient understands the risks and benefits of the procedure and understands that these risks include, but are not limited to: sedation, allergic reaction, infection, perforation and/or bleeding. Alternative means of evaluation and treatment include, among others: physical exam, x-rays, and/or surgical intervention. The patient elects to proceed with this endoscopic procedure. medical equipment was checked for proper function. Hand hygiene and appropriate measures for infection prevention was taken. After the risks, benefits and alternatives of the procedure were thoroughly explained, Informed consent was verified, confirmed and timeout was successfully executed by the treatment team. The patient was anesthetized with topical anesthesia and the Pentax EG-[id number] endoscope was introduced through the mouth and advanced to the second portion of the duodenum. Retroflexion was performed and was normal The gastroscope was then slowly withdrawn and removed. ESOPHAGUS: The mucosa of the esophagus appeared normal. STOMACH: There was chronic moderate gastritis in the entire examined stomach. Multiple biopsies were performed using cold forceps. Sample sent for histology. DUODENUM: Mild duodenal inflammation was found in the bulb and second portion of the duodenum. ADVERSE EVENTS: There were no complications. IMPRESSIONS: 1. The esophagus appeared normal 2. There was chronic gastritis in the entire examined stomach; multiple biopsies were performed 3. Duodenal inflammation was found in the bulb and second portion of the duodenum 4. Retroflexion was performed and was normal RECOMMENDATIONS: 1. Await biopsy results. Biopsy results will not be ready for 7-10 days. If you don't hear from us in two weeks, call our office for biopsy results. 2. Continue PPI PATIENT CONDITION: stable DISPOSITION: Observation REPEAT EXAM: NONE Francine Alas MD eSigned: Francine Alas MD 11/04/2017 12:31 PM cc: PATIENT NAME: Ivette Buchanan MR#: [id number]
--- NOTE | 2017-11-04 13:40 | PD.CONS ---
History of Present Illness Service Infectious disease Consult Requested By Dr Isabella Quach Reason for Consult Evaluate patient with urine culture with E. coli ESBL positive Primary Care Physician ANT Monzon Diagnoses: History of Present Illness Patient seen and examined. Records reviewed. Patient is a 37-year-old female, scented to the hospital for further evaluation of a hemoglobin of less than 6.5. She apparently has been having symptoms of generalized weakness and fatigue. Also has had some dyspnea on exertion. She was evaluated, and GI saw the patient. Patient also gave a history of heavy menstrual bleeding, and has an appointment to see her physician. Patient had an upper endoscopy which showed some gastritis and some duodenitis. Hematology also saw the patient and felt that patient has iron deficiency anemia. When she came in she had a little bit of complaint as far as hesitancy when she urinates. She did not have any dysuria or any frequency. Urinalysis showed 1 WBC, with many bacteria. Urine culture is not reported as growing E. coli ESBL positive. She has not been febrile. Currently she has no urinary complaints. She has not had any problem with UTI. Infectious disease consultation has been requested to evaluate the patient. Review of Systems Constitutional: COMPLAINS OF: Fatigue, DENIES: Fever, Chills, Night Sweats Endocrine: COMPLAINS OF: Abnorml menstrual pattern Eyes: DENIES: Eye pain Ears, nose, mouth, throat: DENIES: Nasal discharge, Oral lesions, Throat pain, Sinus Pain Respiratory: DENIES: Cough, Shortness of breath Cardiovascular: COMPLAINS OF: Dyspnea on Exertion, DENIES: Chest pain, Palpitations, Syncope Gastrointestinal: DENIES: Abdominal pain, Diarrhea, Nausea, Vomiting, Difficulty Swallowing Genitourinary: DENIES: Urinary frequency, Dysuria Musculoskeletal: DENIES: Joint pain, Joint Swelling Integumentary: DENIES: Rash Hematologic/lymphatic: DENIES: Bruising Immunologic/allergic: DENIES: Urticaria Neurologic: DENIES: Headache, Localized weakness Psychiatric: DENIES: Hallucinations Past Family Social History Allergies: Coded Allergies: No Known Allergies (Unverified , 11/02/17) Past Medical History 4 pregnancies and 4 normal vaginal delivery Past Surgical History Tubal ligation Active Ordered Medications Current Medications Medications (Trade) Dose Ordered Sig/Marin Route Start Time Stop Time Status Last Admin (Tylenol) 650 mg Q4H PRN PO 11/02/17 16:45 11/02/17 22:32 (Zofran Odt) 4 mg Q6H PRN SL 11/02/17 23:00 11/02/17 23:04 (ASP Crit: Doc ESBL, MDR A baumannii or P aer) 1 UNSCH X1 PRN .XX 11/04/17 10:15 11/05/17 10:14 ([facility]) 1 UNSCH X1 PRN XX 11/04/17 10:15 11/05/17 10:14 Ertapenem 1000 mg/ Sodium Chloride 100 ml @ 200 mls/hr Q24H IV 11/04/17 11:00 Family History Noncontributory to current ID problem Social History No smoking No alcohol abuse No illicit drug Physical Exam Vital Signs Vital Signs Date Time Temp Pulse Resp B/P (MAP) Pulse Ox O2 Delivery O2 Flow Rate FiO2 11/04/17 12:43 98.7 69 18 134/77 (96) 100 11/04/17 07:56 98.6 68 18 150/88 (108) 98 11/04/17 04:15 98.1 62 17 111/56 (74) 100 11/03/17 23:40 98.2 56 16 111/68 (82) 100 11/03/17 19:50 98.4 53 16 124/70 (88) 100 11/03/17 15:11 98.5 66 20 113/59 (77) 97 Physical Exam GENERAL: Patient is a well-nourished, well-developed female, awake and alert , not in respiratory distress. SKIN: Warm and dry. No generalized rash, no ecchymoses and no evidence of embolic lesions. HEAD: Atraumatic. Normocephalic. No temporal wasting, or tenderness. EYES: [place] conjunctiva. No petechia or hemorrhage. Pupils equal, round and reactive to light. Extraocular movements full and intact. No scleral icterus. No injection or drainage. EARS, NOSE AND THROAT: Nose without bleeding or purulent nasal discharge. No sinus tenderness. Mucous membranes pink and moist. No oral lesions noted. No exudate. No oral thrush. NECK: Trachea midline. Supple and not tender, no meningeal signs CARDIOVASCULAR: Regular rate and rhythm. No murmurs, rubs or gallops heard RESPIRATORY: Clear to auscultation. Breath sounds equal bilaterally. No rales , wheezing or rhonchi ABDOMEN: Soft, mild tenderness on the left side, nondistended, no rebound, no guarding.. Bowel sounds present and normoactive. No organomegaly. EXTREMITIES: No clubbing, cyanosis, or edema.No joint effusion, has good ROM. No calf tenderness. Well perfused and warm. NEUROLOGICAL: Awake and alert. Cranial nerves grossly intact. Motor grossly within normal limits. PSYCHIATRIC: Normal affect, calm and cooperative. LINE: No evidence of infection Laboratory Laboratory Tests Test 11/03/17 15:28 11/04/17 10:16 Hemoglobin 9.9 9.8 Hematocrit 31.2 32.1 White Blood Count 6.6 Red Blood Count 4.76 Mean Corpuscular Volume 67.3 Mean Corpuscular Hemoglobin 20.7 Mean Corpuscular Hemoglobin Concent 30.7 Red Cell Distribution Width 26.4 Platelet Count 327 Mean Platelet Volume 8.6 Neutrophils (%) (Auto) 76.4 Lymphocytes (%) (Auto) 15.7 Monocytes (%) (Auto) 6.1 Eosinophils (%) (Auto) 1.3 Basophils (%) (Auto) 0.5 Neutrophils # (Auto) 5.0 Lymphocytes # (Auto) 1.0 Monocytes # (Auto) 0.4 Eosinophils # (Auto) 0.1 Basophils # (Auto) 0.0 CBC Comment AUTO DIFF Differential Comment AUTO DIFF CONFIRMED Ovalocytes 1+ Date/Time Source Procedure Growth Status 11/04/17 13:12 Blood Peripheral Aerobic Blood Culture Pending Received 11/04/17 13:12 Blood Peripheral Anaerobic Blood Culture Pending Received 11/02/17 15:30 Urine Random Urine Urine Culture - Final Escherichia Coli Esbl Positive Complete Result Diagram: 11/04/17 1016 11/03/17 1126 Imaging RADIOLOGY STUDIES/FILMS REVIEWED Abdomen/Pelvis CT 11/03/17 0000 Signed Impressions: CONCLUSION: 1. No acute finding is identified to explain the patient's weight loss. 2. There is trace free fluid in the posterior cul-de-sac in the pelvis which m ay be physiologic. Assessment and Plan Assessment and Plan IMPRESSION (+) UC with E coli ESBL+, UA not impressive - repotedly has some hesitancy earlier, has resolved Anemia, Fe deficiency likely due to heavy menstrual flow RECOMMENDATION No need for IV Abx Macrobid x 7 days Patient can be D/C from ID standpoint Thank you for this consultation Discussed Condition With Explained plan to the patient Discussed with RN D/W Jalyn Contreras MD Nov 04, 2017 13:40
[2017-11-04] MEDS: NITROFURANTOIN MONOHYD MACROCR 100 MG CAP PO SCH ×2 (15:11→18:31)
[2017-11-04 16:08] VITALS: BP 117/58; PULSE 67; RESP 20; TEMP 98.3; O2SAT 100
--- NOTE | 2017-11-04 17:50 | PD.ONC.PN ---
Subjective Subjective Remarks Patient seen and examined, vital signs, labs, medications, imaging studies and procedure reports reviewed. Subjectively; patient denies acute complaints. She denies difficulty breathing , chest pain, PND, orthopnea or active bleeding. Objective Data Date Time Temp Pulse Resp B/P (MAP) Pulse Ox O2 Delivery O2 Flow Rate FiO2 11/04/17 16:08 98.3 67 20 117/58 (77) 100 11/04/17 12:43 98.7 69 18 134/77 (96) 100 11/04/17 07:56 98.6 68 18 150/88 (108) 98 11/04/17 04:15 98.1 62 17 111/56 (74) 100 11/03/17 23:40 98.2 56 16 111/68 (82) 100 11/03/17 19:50 98.4 53 16 124/70 (88) 100 11/04/17 11/04/17 11/04/17 07:00 15:00 23:00 Intake Total 760 ml 300 ml Balance 760 ml 300 ml Result Diagram: 11/04/17 1016 11/03/17 1126 Laboratory Results Laboratory Tests Test 11/04/17 10:16 White Blood Count 6.6 TH/MM3 Red Blood Count 4.76 MIL/MM3 Hemoglobin 9.8 GM/DL Hematocrit 32.1 % Mean Corpuscular Volume 67.3 FL Mean Corpuscular Hemoglobin 20.7 PG Mean Corpuscular Hemoglobin Concent 30.7 % Red Cell Distribution Width 26.4 % Platelet Count 327 TH/MM3 Mean Platelet Volume 8.6 FL Neutrophils (%) (Auto) 76.4 % Lymphocytes (%) (Auto) 15.7 % Monocytes (%) (Auto) 6.1 % Eosinophils (%) (Auto) 1.3 % Basophils (%) (Auto) 0.5 % Neutrophils # (Auto) 5.0 TH/MM3 Lymphocytes # (Auto) 1.0 TH/MM3 Monocytes # (Auto) 0.4 TH/MM3 Eosinophils # (Auto) 0.1 TH/MM3 Basophils # (Auto) 0.0 TH/MM3 CBC Comment AUTO DIFF Differential Comment AUTO DIFF CONFIRMED Ovalocytes 1+ Culture Results Microbiology Date/Time Source Procedure Growth Status 11/04/17 13:12 Blood Peripheral Aerobic Blood Culture Pending Received 11/04/17 13:12 Blood Peripheral Anaerobic Blood Culture Pending Received 11/04/17 13:07 Blood Peripheral Aerobic Blood Culture Pending Received 11/04/17 13:07 Blood Peripheral Anaerobic Blood Culture Pending Received 11/02/17 15:30 Urine Random Urine Urine Culture - Final Escherichia Coli Esbl Positive Complete Administered Medications Medications (Trade) Dose Ordered Sig/Marin Route PRN Reason Start Time Stop Time Status Last Admin Dose Admin Acetaminophen (Tylenol) 650 mg Q4H PRN PO TEMP > 100.4 11/02/17 16:45 11/02/17 22:32 Ondansetron HCl (Zofran Odt) 4 mg Q6H PRN SL NAUSEA 11/02/17 23:00 11/02/17 23:04 Nitrofurantoin Macrocrystals (Macrobid) 100 mg BIDPC PO 11/04/17 13:45 11/11/17 13:44 11/04/17 15:11 Objective Remarks GENERAL: Young female, sitting up in bed, appears to be no acute distress is a pleasant disposition. SKIN: No rashes, ecchymoses or lesions. Cool and dry. HEAD: Atraumatic. Normocephalic. No temporal or scalp tenderness. EYES: Pupils equal round and reactive. Extraocular motions intact. No scleral icterus. No injection or drainage. Conjunctivae are pale. Sclerae anicteric. ENT: Nose without bleeding, purulent drainage or septal hematoma. Throat without erythema, tonsillar hypertrophy or exudate. Uvula midline. Airway patent. NECK: Trachea midline. No JVD or lymphadenopathy. Supple, nontender, no meningeal signs. CARDIOVASCULAR: Regular rate and rhythm without murmurs, gallops, or rubs. RESPIRATORY: Clear to auscultation. Breath sounds equal bilaterally. No wheezes , rales, or rhonchi. GASTROINTESTINAL: Abdomen soft, non-tender, nondistended. No hepato-splenomegaly , or palpable masses. No guarding. MUSCULOSKELETAL: Extremities without clubbing, cyanosis, or edema. No joint tenderness, effusion, or edema noted. No calf tenderness. Negative Homans sign bilaterally. NEUROLOGICAL: Awake and alert. Cranial nerves II through XII intact. Motor and sensory grossly within normal limits. Five out of 5 muscle strength in all muscle groups. Normal speech. Assessment/Plan Assessment Ms. Buchanan is a very pleasant 37-year-old female we denies any significant medical comorbid conditions other than having anemia in the past for which she was on and off oral iron replacement therapy. She presents to the hospital with a 2 month history of progressive weakness, fatigue, early satiety, unintended weight loss and abdominal bloating. Initial blood work indicated severe anemia associate with microcytosis, serum iron studies indicate severe iron deficiency. She is currently undergoing a workup for her GI symptoms as well as iron deficiency anemia. Plan 1. Severe iron deficiency anemia: EGD results reviewed; she had gastritis involving the stomach as well as duodenum. Management per gastroenterology. Await pathology from mucosal biopsies. For management of iron deficiency anemia I will order 1 additional dose of iron sucrose 200 mg IV tonight. Initiate ferrous sulfate 325 mg p.o. 3 times daily. I would advise her to also start folic acid 1 mg p.o. daily. Please discharged home on ferrous sulfate at the above dose as well as folic acid at the above dose. I have requested outpatient follow-up with the hematology clinic in the upcoming 2-3 weeks. From a hematologic standpoint she is clear for discharge. Richard Palomo MD Nov 04, 2017 17:50
[2017-11-04] MEDS ORDERED: IRON SUCROSE INJ 200 MG in SODIUM CHLORIDE 0.9% INJ 100 ML IV ONE (18:00)
[2017-11-04] MEDS: FERROUS SULFATE 325 MG (65 MG ELEMENTAL IRON) TAB PO SCH (19:23)
[2017-11-04 20:07] VITALS: BP 122/68; PULSE 59; RESP 16; TEMP 98.6; O2SAT 100
[2017-11-04 23:40] VITALS: BP 111/55; PULSE 64; RESP 17; TEMP 98.5; O2SAT 100
[2017-11-05 03:52] VITALS: BP 116/59; PULSE 72; RESP 16; TEMP 98.5; O2SAT 99
[2017-11-05] MEDS ORDERED: DOCUSATE SODIUM 50 MG/SENNA 8.6 MG TAB PO ONE (07:45)
[2017-11-05 08:05] VITALS: BP 102/56; PULSE 76; RESP 18; TEMP 98.9; O2SAT 99
[2017-11-05] MEDS ORDERED: FOLIC ACID 1 MG TAB PO SCH (09:00)
[2017-11-05] MEDS: NITROFURANTOIN MONOHYD MACROCR 100 MG CAP PO SCH (09:51)
[2017-11-05] MEDS: FERROUS SULFATE 325 MG (65 MG ELEMENTAL IRON) TAB PO SCH ×2 (09:51→13:25)
[2017-11-05] MEDS ORDERED: FERR325T20 PO (10:56)
[2017-11-05] MEDS ORDERED: PERI PO (10:56)
[2017-11-05] MEDS ORDERED: FOLI1TAB6 PO (10:56)
[2017-11-05] MEDS ORDERED: NITR100C4 PO (10:56)
--- NOTE | 2017-11-05 11:07 | HHI.PR ---
Subjective Remarks Patient says he is feeling well. Has no complaints. Denies any abdominal pain. Denies nausea or vomiting. Denies any lightheadedness or dizziness Objective Vital Signs Date Time Temp Pulse Resp B/P (MAP) Pulse Ox O2 Delivery O2 Flow Rate FiO2 11/05/17 08:05 98.9 76 18 102/56 (71) 99 11/05/17 03:52 98.5 72 16 116/59 (78) 99 11/04/17 23:40 98.5 64 17 111/55 (73) 100 11/04/17 20:07 98.6 59 16 122/68 (86) 100 11/04/17 16:08 98.3 67 20 117/58 (77) 100 11/04/17 12:43 98.7 69 18 134/77 (96) 100 I/O 11/04/17 11/04/17 11/04/17 11/05/17 11/05/17 11/05/17 07:00 15:00 23:00 07:00 15:00 23:00 Intake Total 760 ml 300 ml Balance 760 ml 300 ml Intake Oral 760 ml Other 300 ml # Bowel Movements 0 Result Diagram: 11/04/17 1016 11/03/17 1126 Objective Remarks GENERAL: Patient sitting in bed. Appears comfortable. SKIN: Warm and dry. HEAD: Normocephalic. EYES: No scleral icterus. No injection or drainage. NECK: Supple, trachea midline. No JVD. CARDIOVASCULAR: Regular rate and rhythm without murmurs, gallops, or rubs. RESPIRATORY: Breath sounds equal bilaterally. No accessory muscle use. GASTROINTESTINAL: Abdomen soft, non-tender, nondistended. MUSCULOSKELETAL: No cyanosis, or edema. BACK: Nontender without obvious deformity. No CVA tenderness. A/P Assessment and Plan //Anemia: Uncertain etiology, possibly secondary to menstrual bleeding. Workup consistent with iron deficiency. Hemoglobin improved following transfusion of 2 units PRBCs. Stool Hemoccult pending. Patient denies history of sickle cell disease or any other blood problems. States that in the past she has had anemia , but never with a hemoglobin this low. Appreciate hematology recommendations. Received 1 dose of IV iron. = Cleared by hematology for discharge. Continue on iron regimen. Follow-up with hematology and gastroenterology as outpatient. Biopsies from EGD are pending. Patient advised and conveys understanding. // Increased appetite, early satiety: Appreciate GI recommendations. No acute change found on CT to explain her symptoms. Scheduled for EGD and colonoscopy. = Status post EGD with biopsies. Follow-up with GI as outpatient. // UTI: Urine culture growing ESBL positive E. coli. Start ertapenem. Consult infectious disease. Contact isolation. = Continue course of Macrobid as per ID recommendations. Appreciate assistance. // DVT prophylaxis: SCDs. Avoid chemical prophylaxis secondary to anemia. Discharge Planning Discharge home. Follow-up with GI, PCP, hematology as outpatient. Steven Sosa MD Nov 05, 2017 11:06
--- NOTE | 2017-11-05 11:10 | HHI.DS ---
Discharge Summary Admission Date Nov 04, 2017 at 13:16 Discharge Date: Nov 05, 2017 Admitting Diagnosis Symptomatic anemia (1) Symptomatic anemia ICD Code: D64.9 - Anemia, unspecified Status: Acute Procedures None Brief History - From Admission 37 years old female with no significant past medical history referred by her primary care physician to the hospital after she was found to have hemoglobin of 6.2, patient reported significant feeling of fatigue dyspnea on exertion for several weeks as well as dizziness, she reported heavy menses occasionally, she denies any family history of colon cancer except for her on Tis had polyps but it was not known if it is cancerous. She is non-smoker no history of other hemoglobinopathy such as sickle cell disease. Patient had a hip history of tubal ligation otherwise she denied any other associated symptoms no chest pain no diarrhea or constipation no dysuria or hematuria CBC/BMP: 11/04/17 1016 11/03/17 1126 Significant Findings Laboratory Tests Test 11/02/17 14:55 11/02/17 15:30 11/03/17 02:29 11/03/17 11:26 Red Blood Count 3.79 MIL/MM3 (4.00-5.30) Hemoglobin 6.8 GM/DL (11.6-15.3) 9.4 GM/DL (11.6-15.3) 9.8 GM/DL (11.6-15.3) Hematocrit 23.4 % (35.0-46.0) 30.3 % (35.0-46.0) 32.3 % (35.0-46.0) Mean Corpuscular Volume 61.6 FL (80.0-100.0) 66.9 FL (80.0-100.0) Mean Corpuscular Hemoglobin 17.8 PG (27.0-34.0) 20.4 PG (27.0-34.0) Mean Corpuscular Hemoglobin Concent 28.9 % (32.0-36.0) 30.4 % (32.0-36.0) Red Cell Distribution Width 19.6 % (11.6-17.2) 26.4 % (11.6-17.2) Monocytes (%) (Auto) 8.4 % (0.0-8.0) Aspartate Amino Transf (AST/SGOT) 12 U/L (15-37) Chloride Level 108 MEQ/L (98-107) 112 MEQ/L (98-107) Iron Level 11 MCG/DL (50-170) Total Iron Binding Capacity 477 MCG/DL (250-450) Percent Iron Saturation 2.3 % (20-50) Ferritin 2 NG/ML (8-252) Urine Turbidity HAZY (CLEAR) Urine Protein 30 mg/dL (NEG-TRACE) Urine Ketones TRACE mg/dL (NEG) Urine Nitrite POS (NEG) Urine Leukocyte Esterase SMALL (NEG) Urine Bacteria MANY /hpf (NONE) Urine Mucus MANY /lpf (OCC) Neutrophils (%) (Auto) 71.2 % (16.0-70.0) Ovalocytes 1+ (NORMAL) Random Glucose 115 MG/DL (74-106) Potassium Level 3.4 MEQ/L (3.5-5.1) Test 11/03/17 15:28 11/04/17 10:16 Hemoglobin 9.9 GM/DL (11.6-15.3) 9.8 GM/DL (11.6-15.3) Hematocrit 31.2 % (35.0-46.0) 32.1 % (35.0-46.0) Mean Corpuscular Volume 67.3 FL (80.0-100.0) Mean Corpuscular Hemoglobin 20.7 PG (27.0-34.0) Mean Corpuscular Hemoglobin Concent 30.7 % (32.0-36.0) Red Cell Distribution Width 26.4 % (11.6-17.2) Neutrophils (%) (Auto) 76.4 % (16.0-70.0) Ovalocytes 1+ (NORMAL) Imaging Last Impressions Abdomen/Pelvis CT 11/03/17 0000 Signed Impressions: CONCLUSION: 1. No acute finding is identified to explain the patient's weight loss. 2. There is trace free fluid in the posterior cul-de-sac in the pelvis which m ay be physiologic. PE at Discharge General: No acute distress. Heart: Regular rate and rhythm. No murmur. Lungs: Clear to auscultation bilaterally. No wheezes, rales, or rhonchi. Breathing is nonlabored. Abdomen: Soft, nontender, nondistended. Extremities: No lower extremity edema. Psych: Alert and oriented. Neuro: Normal speech. No focal deficits noted. Hospital Course Patient presented with anemia, hemoglobin is 6.8. Was transfused 2 units with improvement of hemoglobin to the nines where she remains during hospitalization. Gastroenterology was consulted, patient underwent EGD with biopsies pending. No acute source of bleeding found. Imaging as above. Patient also underwent IV iron administration, and will be started on iron regimen. Follow-up with hematology as outpatient. Follow-up with gastroenterology as outpatient, as patient may need colonoscopy. For problem based summary from most recent progress note, please see below. //Anemia: Uncertain etiology, possibly secondary to menstrual bleeding. Workup consistent with iron deficiency. Hemoglobin improved following transfusion of 2 units PRBCs. Stool Hemoccult pending. Patient denies history of sickle cell disease or any other blood problems. States that in the past she has had anemia , but never with a hemoglobin this low. Appreciate hematology recommendations. Received 1 dose of IV iron. = Cleared by hematology for discharge. Continue on iron regimen. Follow-up with hematology and gastroenterology as outpatient. Biopsies from EGD are pending. Patient advised and conveys understanding. // Increased appetite, early satiety: Appreciate GI recommendations. No acute change found on CT to explain her symptoms. Scheduled for EGD and colonoscopy. = Status post EGD with biopsies. Follow-up with GI as outpatient. // UTI: Urine culture growing ESBL positive E. coli. Start ertapenem. Consult infectious disease. Contact isolation. = Continue course of Macrobid as per ID recommendations. Appreciate assistance. // DVT prophylaxis: SCDs. Avoid chemical prophylaxis secondary to anemia. Pt Condition on Discharge: Good Discharge Disposition: Discharge Home Discharge Time: > 30 minutes Discharge Instructions DIET: Follow Instructions for: As Tolerated, No Restrictions Activities you can perform: Regular-No Restrictions Follow up Referrals: Gastroenterology - 1 Week with Francine Alas MD Oncology/Hematology - 1 Month with Richard Palomo MD PCP Follow-up - 1 Week with Lise Salas New Medications: Ferrous Sulfate (Ferosul) 325 Mg (65 Mg Iron) Tablet 325 MG PO TID for anemia for 30 Days, TAB Folic Acid (Folic Acid) 1 Mg Tablet 1 MG PO DAILY for anemia for 30 Days, #30 TAB Nitrofurantoin Monohydrate Macrocrystals (Nitrofurantoin Monohydrate Macrocrystals) 100 Mg Cap 100 MG PO BIDPC for Infection for 7 Days, CAP Sennosides-Docusate Sodium (Gnp Senna Plus 8.6-50 mg) 8.6 Mg-50 Mg Tab 1 TAB PO DAILY for Constipation for 30 Days, #30 TAB Steven Sosa MD Nov 05, 2017 11:10
--- NOTE | 2017-11-05 12:33 | PD.ONC.PN ---
Subjective Subjective Remarks Afebrile overnight. Patient feeling better than she did upon admission. states she has more energy. she is tolerating the iron pills. no constipation. Objective Data Date Time Temp Pulse Resp B/P (MAP) Pulse Ox O2 Delivery O2 Flow Rate FiO2 11/05/17 08:05 98.9 76 18 102/56 (71) 99 11/05/17 03:52 98.5 72 16 116/59 (78) 99 11/04/17 23:40 98.5 64 17 111/55 (73) 100 11/04/17 20:07 98.6 59 16 122/68 (86) 100 11/04/17 16:08 98.3 67 20 117/58 (77) 100 11/04/17 12:43 98.7 69 18 134/77 (96) 100 Result Diagram: 11/04/17 1016 11/03/17 1126 Culture Results Microbiology Date/Time Source Procedure Growth Status 11/04/17 13:12 Blood Peripheral Aerobic Blood Culture - Preliminary NO GROWTH IN 1 DAY Resulted 11/04/17 13:12 Blood Peripheral Anaerobic Blood Culture - Preliminary NO GROWTH IN 1 DAY Resulted 11/04/17 13:07 Blood Peripheral Aerobic Blood Culture - Preliminary NO GROWTH IN 1 DAY Resulted 11/04/17 13:07 Blood Peripheral Anaerobic Blood Culture - Preliminary NO GROWTH IN 1 DAY Resulted 11/05/17 08:27 Stool Stool Stool Occult Blood (RICHIE) - Final HEMOCCULT NEGATIVE Complete 11/02/17 15:30 Urine Random Urine Urine Culture - Final Escherichia Coli Esbl Positive Complete Administered Medications Medications (Trade) Dose Ordered Sig/Marin Route PRN Reason Start Time Stop Time Status Last Admin Dose Admin Acetaminophen (Tylenol) 650 mg Q4H PRN PO TEMP > 100.4 11/02/17 16:45 11/02/17 22:32 Ondansetron HCl (Zofran Odt) 4 mg Q6H PRN SL NAUSEA 11/02/17 23:00 11/02/17 23:04 Nitrofurantoin Macrocrystals (Macrobid) 100 mg BIDPC PO 11/04/17 13:45 11/11/17 13:44 11/05/17 09:51 Folic Acid (Folate) 1 mg DAILY PO 11/05/17 09:00 11/05/17 09:51 Ferrous Sulfate (Ferrous Sulfate) 325 mg TID PO 11/04/17 18:00 11/05/17 09:51 Objective Remarks GENERAL: Young woman, sitting up in bed in nad. SKIN: Warm and dry. HEAD: Normocephalic. EYES: No injection or drainage. NECK: Supple, trachea midline. CARDIOVASCULAR: Regular rate and rhythm RESPIRATORY: Breath sounds equal bilaterally. No accessory muscle use. GASTROINTESTINAL: Abdomen soft, non-tender, nondistended. EXTREMITIES: No cyanosis NEUROLOGICAL: awake and alert. normal speech. moving all extremities. Assessment/Plan Assessment 37y/o female with anemia. --2 month history of progressive weakness, fatigue, early satiety, unintended weight loss and abdominal bloating. -- Initial blood work indicated severe anemia associate with microcytosis, serum iron studies indicate severe iron deficiency. --currently undergoing a workup for her GI symptoms as well as iron deficiency anemia. Plan 1. Severe iron deficiency anemia: --EGD indicated gastritis involving the stomach as well as duodenum. Management per gastroenterology. --s/p iron sucrose --continue ferrous sulfate 325 mg p.o. 3 times daily + folic acid 1 mg p.o. daily. follow up in hematology clinic upon discharge. Attending Statement The exam, history, and the medical decision-making described in the above note were completed with the assistance of the mid-level provider. I reviewed and agree with the findings presented. I attest that I had a [id number] encounter with the patient on the same day, and personally performed and documented my assessment and findings in the medical record. Discussed the significance of Ferritin 2. Agree to continue oral iron and folic acid as ordered. Card and contact information to new pt referral given for pt to set up fu appt w / Dr. Palomo. Ok for DC from heme/onc perspective. Columba Mcdonald Nov 05, 2017 12:33 Sameera Diaz MD Nov 05, 2017 16:08
[2017-11-05 13:12] VITALS: BP 118/70; PULSE 68; RESP 18; TEMP 98.7; O2SAT 100
--- NOTE | 2017-11-05 14:59 | HHI.GIFU ---
Subjective Remarks Patient currently denies any abdominal pain no nausea no vomiting Current hemoglobin 9.8 Hemoccult stool negative (Wendie Lynn) Objective Vitals I&O Vital Signs Date Time Temp Pulse Resp B/P (MAP) Pulse Ox O2 Delivery O2 Flow Rate FiO2 11/05/17 13:12 98.7 68 18 118/70 (86) 100 11/05/17 08:05 98.9 76 18 102/56 (71) 99 11/05/17 03:52 98.5 72 16 116/59 (78) 99 11/04/17 23:40 98.5 64 17 111/55 (73) 100 11/04/17 20:07 98.6 59 16 122/68 (86) 100 11/04/17 16:08 98.3 67 20 117/58 (77) 100 I/O 11/04/17 11/04/17 11/04/17 11/05/17 11/05/17 11/05/17 07:00 15:00 23:00 07:00 15:00 23:00 Intake Total 760 ml 300 ml Balance 760 ml 300 ml Intake Oral 760 ml Other 300 ml # Voids 1 # Bowel Movements 0 1 Laboratory Date/Time Source Procedure Growth Status 11/04/17 13:12 Blood Peripheral Aerobic Blood Culture - Preliminary NO GROWTH IN 1 DAY Resulted 11/04/17 13:12 Blood Peripheral Anaerobic Blood Culture - Preliminary NO GROWTH IN 1 DAY Resulted 11/05/17 08:27 Stool Stool Stool Occult Blood (RICHIE) - Final HEMOCCULT NEGATIVE Complete 11/02/17 15:30 Urine Random Urine Urine Culture - Final Escherichia Coli Esbl Positive Complete Physical Exam HEENT: normocephalic; atraumatic; no jaundice. NECK: Neck is supple, no JVD, no lymphadenopathy. CHEST: Chest is clear to auscultation and percussion. CARDIAC: Regular rate and rhythm ABDOMEN: Soft, nondistended, nontender; no hepatosplenomegaly; bowel sounds are present in all four quadrants. EXTREMITIES: No clubbing, cyanosis, or edema. SKIN: Normal; no rash; no jaundice. TOOLMAN: No focal deficits; alert and oriented times three. (Wendie Lynn) Assessment and Plan Plan Assessment: - Anemia, microcytic, hypochromic H/H 6.8/23.4 on admission States known history of anemia- has been as low as a hgb of 7 or 8. Was advised to take iron supplements but has not done so. Denies previous blood transfusion. Thinks may have family history of anemia, but denies sickle cell anemia. Last EGD in 2002 revealed H. Pylori. Has never had colonoscopy Complaining of: early satiety and abdominal bloating after meals for the past year, unintentional weight loss of 10 lbs over the past month, one episode of acid reflux and nausea yesterday but denies this previously. Lower abdominal pain, intermittent, few times a week, last a couple hours, takes Tylenol which sometimes provides relief. Denies: Constipation, diarrhea, vomiting, blood in stool ETOH- occasional. Denies smoking and illicit drug use Takes Aleve as needed but normally only during her menstrual cycle. Family history of uterine cancer, mother Of note, pt does reports occasional heavy menstrual cycles, although states last month was light 11/05/2017 patient is resting in the bed and hoping to go home . EGD done on 2017 Findings include normal esophagus, chronic gastritis over the entire stomach with multiple biopsies done duodenal inflammation found in the bulb and the second portion of the duodenum Retroflexion was normal. Current hemoglobin is 9.8 Plan Diet per attending Protonix, continue outpatient Reflux precautions which include avoid carbonated drinks, chocolate, eating late. Biopsies pending follow-up in the GI office in 2 weeks to 1 month GI will sign off for now Patient was seen per myself and Dr. Alas, this note was written on his behalf (Wendie Lynn) Physician Comments Agree with above plan. Will need an outpatient colonoscopy since patient is refusing at the current time. Please notify us if needed . (Francine Alas MD) Wendie Lynn Nov 05, 2017 14:59 Francine Alas MD Nov 06, 2017 12:17
[2017-11-05] MEDS ORDERED: PROT40TA PO (15:39)
[2017-11-05] MEDS ORDERED: DOCUSATE SODIUM 50 MG/SENNA 8.6 MG TAB PO SCH (21:00)
== END 2017-11-05 16:19 | disposition home or self-care (01) | DRG 812 ==
LOC: NEPC 13:46 → NEDA 16:44 → NEPGCP 17:23 → OBSVTOIN 11-04 13:16
PROVIDERS: ADMIT Internal Medicine; ATTEND Internal Medicine
PROC: 30233N1 Transfusion of Nonautologous Red Blood Cells into Peripheral Vein, Percutaneous Approach (ICD-10-PCS; principal; 2017-11-02)
PROC: 0DB68ZX Excision of Stomach, Via Natural or Artificial Opening Endoscopic, Diagnostic (ICD-10-PCS; 2017-11-02)
DX: D50.0 Iron deficiency anemia secondary to blood loss (chronic) (principal); N39.0 Urinary tract infection, site not specified; N92.0 Excessive and frequent menstruation with regular cycle; R63.4 Abnormal weight loss; K29.80 Duodenitis without bleeding; K29.50 Unspecified chronic gastritis without bleeding; B96.20 Unspecified Escherichia coli [E. coli] as the cause of diseases classified elsewhere; Z16.12 Extended spectrum beta lactamase (ESBL) resistance; Z80.41 Family history of malignant neoplasm of ovary; Z83.2 Family history of diseases of the blood and blood-forming organs and certain disorders involving the immune mechanism
CPT/HCPCS: 36430; 74177; 80048; 80053; 81001; 82272; 82607; 82728; 82746; 83010; 83540; 83550; 83615; 84466; 84703; 85014; 85018; 85025; 85610; 86850; 86900; 86901; 86920; 87040; 87077; 87086; 87186; 88305; 88312; J1756; J7050; P9016; Q9963; Q9967